=== PATIENT | male | born 1985 | race Caucasian/White ===

== ENCOUNTER 2023-11-02 21:14 | Emergency (ER) | payer BC ==
[2023-11-02 22:28] LABS: Basophils # (A) 0.1 k/uL (0-0.2); Basophils % (A) 1 %; Eosinophils # (A) 0.2 k/uL (0-0.7); Eosinophils % (A) 4 %; HCT 45.4 % (39.0-53.0); HGB 15.2 gm/dL (13.0-17.5); Lymphocytes # (A) 1.2 k/uL (1.0-4.8); Lymphocytes % (A) 23 %; MCH 34.4 pg (25.0-35.0); MCHC 33.5 g/dL (31.0-37.0); MCV 102.7 fL (80.0-100.0); Macrocytosis Slight; Mean Platelet Volume 7.8; Monocytes # (A) 0.3 k/uL (0-1.0); Monocytes % (A) 6 %; Neutrophils # (A) 3.3 k/uL (1.3-7.7); Neutrophils % (A) 64 %; Platelet Count 217 k/uL (150-450); RBC 4.42 m/uL (4.30-5.90); RDW 13.4 % (11.5-15.5); WBC 5.2 k/uL (3.8-10.6)
[2023-11-02 22:40] LABS: ALT 59 U/L (4-49); AST 127 U/L (17-59); African American GFR (CKD) >90 (>60 ml/min/1.73 sqM); Albumin 5.1 g/dL (3.5-5.0); Alkaline Phosphatase 62 U/L (38-126); Anion Gap 11 mmol/L; Blood Urea Nitrogen 9 mg/dL (9-20); Calcium 9.2 mg/dL (8.4-10.2); Carbon Dioxide 30 mmol/L (22-30); Chloride 101 mmol/L (98-107); Glucose 102 mg/dL (74-99); Non-African American GFR(CKD) >90 (>60 ml/min/1.73 sqM); Potassium 4.1 mmol/L (3.5-5.1); Sodium 142 mmol/L (137-145); Total Bilirubin 0.5 mg/dL (0.2-1.3); Total Protein 7.9 g/dL (6.3-8.2)
[2023-11-02 22:56] VITALS: RESP 16; TEMP 97.9
--- NOTE | 2023-11-02 23:57 | ED ---
General Adult HPI - General Chief complaint: Extremity Injury, Lower Stated complaint: Right knee swelling Time Seen by Provider: 11/02/23 23:49 Source: patient, RN notes reviewed Mode of arrival: ambulatory Limitations: no limitations - History of Present Illness Initial comments: 38-year-old male presented to the ED with complaints of right leg pain. Patient reports approximately week and a half ago dislocated his right knee which she has recurrent history of. Was seen at an outside facility for this. However since then reported continuing pain over his right knee and had drainage performed by Dr. Valentine 3 days ago. States the following day started to notice pain/swelling of his entire right leg with some discoloration of it as well. Patient is a non-smoker. Does note that he flew in from [place] 5 days ago. Denies fever or chills. No chest pain or shortness of breath. No other complaints at this time. - Related Data Allergies Allergy/AdvReac Type Severity Reaction Status Date / Time No Known Allergies Allergy Verified 11/02/23 22:05 Review of Systems ROS Statement: Those systems with pertinent positive or pertinent negative responses have been documented in the HPI. ROS Other: All systems not noted in ROS Statement are negative. Past Medical History Past Medical History: Hypertension Additional Past Medical History / Comment(s): high blood pressure since cov2021 Additional Past Surgical History / Comment(s): tubes in ears, two reconstructive jaw surgeries Smoking Status: Never smoker Past Alcohol Use History: Occasional Past Drug Use History: None Reported General Exam - General Exam Comments Initial Comments: Visual Physical Exam Vital signs reviewed General: Well-appearing, nontoxic, no acute distress. Head: Normocephalic, atraumatic Eyes: PERRLA, EOMI ENT: Airway patent Chest: Nonlabored breathing Skin: No visual rash, normal skin tone Neuro: Alert and oriented 3 Musculoskeletal: No gross abnormalities Limitations: no limitations General appearance: alert, in no apparent distress Eye exam: Present: normal appearance Neck exam: Present: normal inspection Respiratory exam: Present: normal lung sounds bilaterally Cardiovascular Exam: Present: regular rate GI/Abdominal exam: Present: soft, normal bowel sounds. Absent: distended, tenderness, guarding, rebound, rigid Extremities exam: Present: full ROM, other (Ecchymosis noted on the right upper medial thigh with diffuse swelling. DP/PT pulses intact. Ambulates without difficulty. No findings concerning for compartment syndrome. No significant warmth or erythema.) Neurological exam: Present: alert, oriented X3 Skin exam: Present: warm, dry Course Vital Signs 11/02/23 21:57 Temperature 97.9 F Pulse Rate 101 H Respiratory 16 Rate Blood Pressure 135/92 O2 Sat by Pulse 97 Oximetry Medical Decision Making - Medical Decision Making Quicknote portion performed. Signed Everton Oglesby PA-C Was pt. sent in by a medical professional or institution (, KIKI, SECURITY CLERK, urgent care, hospital, or alf...) When possible be specific @ -No Did you speak to anyone other than the patient for history (EMS, parent, family, police, friend...)? What history was obtained from this source @ -No Did you review nursing and triage notes (agree or disagree)? Why? @ -I reviewed and agree with nursing and triage notes Were old charts reviewed (outside hosp., previous admission, EMS record, old EKG, old radiological studies, urgent care reports/EKG's, alf records)? Report findings @ -No old charts were reviewed Differential Diagnosis (chest pain, altered mental status, abdominal pain women, abdominal pain men, vaginal bleeding, weakness, fever, dyspnea, syncope, headache, dizziness, GI bleed, back pain, seizure, CVA, palpatations, mental health, musculoskeletal)? @ -Differential Musculoskeletal Muscular strain, contusion, ligament sprain, fracture, arthritis, septic arthritis, bursitis, cellulitis, muscle spasm, nerve compression, DVT, arterial occlusion, herpes zoster, electrolyte abnormality, tumor.... This is not meant to be in all inclusive list EKG interpreted by me (3pts min.). @ -None X-rays interpreted by me (1pt min.). @ -X-ray of the knee interpreted me which revealed no evidence of acute finding. CT interpreted by me (1pt min.). @ -None done U/S interpreted by me (1pt. min.). @ -Ultrasound to primary which revealed no evidence of DVT or other acute finding. What testing was considered but not performed or refused? (CT, X-rays, U/S, labs)? Why? @ -None What meds were considered but not given or refused? Why? @ -None Did you discuss the management of the patient with other professionals (professionals i.e. , PA, SECURITY CLERK, lab, RT, psych nurse, social services technician, clinical education specialist, teacher, police or patrol park officer, comp field case manager)? Give summary @ -No Was smoking cessation discussed for >3mins.? @ -No Was critical care preformed (if so, how long)? @ -No Were there social determinants of health that impacted care today? How? (Homelessness, low income, unemployed, alcoholism, drug addiction, transportation, low edu. Level, literacy, decrease access to med. care, intermediate, rehab)? @ -No Was there de-escalation of care discussed even if they declined (Discuss DNR or withdrawal of care, Hospice)? DNR status @ -No What co-morbidities impacted this encounter? (DM, HTN, Smoking, COPD, CAD, Cancer, CVA, ARF, Chemo, Hep., AIDS, mental health diagnosis, sleep apnea, morbid obesity)? @ -None Was patient admitted / discharged? Hospital course, mention meds given and route, prescriptions, significant lab abnormalities, going to OR and other pertinent info. @ -Discharge 38-year-old male presenting to the ED with pain of his right leg following right knee tap a few days ago. On examination, diffuse ecchymosis of the right leg especially of the right upper medial thigh. DP/PT pulses intact. Full active range of motion. Ambulates without difficulty. Symptoms likely secondary to recent trauma. No findings concerning for compartment syndrome. No findings concerning for infectious process. Laboratory studies reviewed. CBC shows no white count. Chemistry panel does show some transaminitis however no concerning findings. Did offer patient antibiotics for possible infectious process however patient declined. Discharged home in stable condition with instructions to closely follow-up with his PCP. Discussed return precautions with patient who verbalized agreement. Undiagnosed new problem with uncertain prognosis? @ -No Drug Therapy requiring intensive monitoring for toxicity (Heparin, Nitro, Insulin, Cardizem)? @ -No Were any procedures done? @ -No Diagnosis/symptom? @ -Right leg pain Acute, or Chronic, or Acute on Chronic? @ -Acute Uncomplicated (without systemic symptoms) or Complicated (systemic symptoms)? @ -Uncomplicated Side effects of treatment? @ -No Exacerbation, Progression, or Severe Exacerbation? @ -No Poses a threat to life or bodily function? How? (Chest pain, USA, RI, pneumonia, PE, COPD, DKA, ARF, appy, cholecystitis, CVA, Diverticulitis, Homicidal, Suicidal, threat to staff... and all critical care pts) @ -No - Lab Data Result diagrams: 11/02/23 22:18 11/02/23 22:18 Lab Results 11/02/23 11/02/23 Range/Units 22:18 22:18 WBC 5.2 (3.8-10.6) k/uL RBC 4.42 (4.30-5.90) m/uL Hgb 15.2 (13.0-17.5) gm/dL Hct 45.4 (39.0-53.0) % MCV 102.7 H (80.0-100.0) fL MCH 34.4 (25.0-35.0) pg MCHC 33.5 (31.0-37.0) g/dL RDW 13.4 (11.5-15.5) % Plt Count 217 (150-450) k/uL MPV 7.8 Neutrophils % 64 % Lymphocytes % 23 % Monocytes % 6 % Eosinophils % 4 % Basophils % 1 % Neutrophils # 3.3 (1.3-7.7) k/uL Lymphocytes # 1.2 (1.0-4.8) k/uL Monocytes # 0.3 (0-1.0) k/uL Eosinophils # 0.2 (0-0.7) k/uL Basophils # 0.1 (0-0.2) k/uL Macrocytosis Slight Sodium 142 (137-145) mmol/L Potassium 4.1 (3.5-5.1) mmol/L Chloride 101 (98-107) mmol/L Carbon Dioxide 30 (22-30) mmol/L Anion Gap 11 mmol/L BUN 9 (9-20) mg/dL Creatinine 0.90 (0.66-1.25) mg/dL Est GFR (CKD-EPI)AfAm >90 (>60 ml/min/1.73 sqM) Est GFR (CKD-EPI)NonAf >90 (>60 ml/min/1.73 sqM) Glucose 102 H (74-99) mg/dL Calcium 9.2 (8.4-10.2) mg/dL Total Bilirubin 0.5 (0.2-1.3) mg/dL AST 127 H (17-59) U/L ALT 59 H (4-49) U/L Alkaline Phosphatase 62 (38-126) U/L Total Protein 7.9 (6.3-8.2) g/dL Albumin 5.1 H (3.5-5.0) g/dL Disposition Clinical Impression: Right leg pain Disposition: HOME SELF-CARE Condition: Good Additional Instructions: Please return to the Emergency Department if symptoms worsen or any other concerns. Please follow-up with your PCP. Use raof-bto-fsslqik medications as needed for pain. Is patient prescribed a controlled substance at d/c from ED?: No Referrals: None,Stated [Primary Care Provider] - 1-2 days Time of Disposition: 03:28
--- NOTE | 2023-11-03 01:10 | US ---
EXAM: US Duplex Right Lower Extremity Veins CLINICAL HISTORY: ITS.REASON US Reason: swollen knee TECHNIQUE: Real-time duplex ultrasound scan of the right lower extremity veins integrating B-mode two-dimensional vascular structure, Doppler spectral analysis, color flow Doppler imaging and compression. COMPARISON: No relevant prior studies available. FINDINGS: Deep veins: No DVT in the visualized common femoral, femoral, proximal deep femoral or popliteal veins. The veins demonstrate normal color flow, are normally compressible, with normal phasic flow and/or augmentation response. Superficial veins: No thrombus in the visualized great saphenous vein. Soft tissues: No popliteal cyst. IMPRESSION: No DVT.
--- NOTE | 2023-11-03 01:11 | XR ---
EXAM: XR Right Knee, 3 Views CLINICAL HISTORY: ITS.REASON XR Reason: swelling TECHNIQUE: Three views of the right knee. COMPARISON: No relevant prior studies available. FINDINGS: Bones/joints: No acute fracture. No dislocation. Soft tissues: There is a tiny calcification adjacent to the medial femoral condyle. IMPRESSION: No acute osseous abnormalities. Correlate with Ike-Stieda lesion related to prior medial collateral ligament injury.
[2023-11-03 03:41] VITALS: BP 150/98; PULSE 90
== END 2023-11-03 03:37 | disposition home or self-care (01) ==
LOC: EC 21:14
DX: M79.604 Pain in right leg (principal); Z86.16 Personal history of COVID-19
CPT/HCPCS: 36415; 80053; 85025; 99284

== ENCOUNTER 2024-01-28 21:42 | Inpatient (IN) | payer BC ==
[~2024-01-28 21:42] MED LIST: LIDOCAINE 1% INJ 10MG/ML (20 ML MDV) ONE; LORazepam 2 MG/ML INJ ONE; MAGNESIUM SULFATE-D5W PMX 100 ML IVPB ONE; TOPICAL SKIN ADHESIVE 1 EACH AMP TOPICAL ONE; levETIRAcetam IV 500 MG/5 ML VIAL ONE
[2024-01-29] MEDS ORDERED: TOPICAL SKIN ADHESIVE 1 EACH AMP TOPICAL ONE (09:23)
[2024-01-29] MEDS ORDERED: levETIRAcetam 500 MG TAB ONE ×2 (09:31→20:23)
[2024-01-29] MEDS ORDERED: THIAMINE 100 MG TAB ONE (09:31)
[2024-01-29] MEDS ORDERED: FOLIC ACID 1 MG TAB ONE (09:31)
[2024-01-29] MEDS ORDERED: MULTIVITAMINS, THERA 1 EACH TAB ONE (09:31)
[2024-01-29] MEDS ORDERED: LORazepam 2 MG/ML INJ ONE ×4 (09:41→20:23)
[2024-01-29] MEDS ORDERED: POTASSIUM CHLORIDE ER 20 MEQ TAB.ER PO ONE (14:15)
[2024-01-29] MEDS ORDERED: MAGNESIUM SULFATE-D5W PMX 100 ML IVPB ONE ×2 (14:15→17:19)
[2024-01-29] MEDS ORDERED: DIPH,PERTUS(ACELL)TETVAC-LF 0.5 ML VIAL IM ONE (23:59)
[2024-01-30] MEDS ORDERED: LORazepam 2 MG/ML INJ ONE ×5 (01:15→20:22)
[2024-01-30] MEDS ORDERED: MULTIVITAMINS, THERA 1 EACH TAB ONE (09:06)
[2024-01-30] MEDS ORDERED: levETIRAcetam 500 MG TAB ONE ×2 (09:06→20:21)
[2024-01-30] MEDS ORDERED: THIAMINE 100 MG TAB ONE (09:07)
[2024-01-30] MEDS ORDERED: FOLIC ACID 1 MG TAB ONE (09:07)
[2024-01-30] MEDS ORDERED: SODIUM CHLORIDE 0.9% 1,000 ML BAG ONE (23:59)
[2024-01-31] MEDS ORDERED: LORazepam 2 MG/ML INJ ONE ×2 (06:59→13:45)
[2024-01-31] MEDS ORDERED: MULTIVITAMINS, THERA 1 EACH TAB ONE (08:16)
[2024-01-31] MEDS ORDERED: FOLIC ACID 1 MG TAB ONE (08:17)
[2024-01-31] MEDS ORDERED: THIAMINE 100 MG TAB ONE (08:17)
[2024-01-31] MEDS ORDERED: levETIRAcetam 500 MG TAB ONE ×2 (08:17→21:19)
[2024-01-31] MEDS ORDERED: MAGNESIUM SULFATE-D5W PMX 100 ML IVPB ONE ×2 (12:16→13:39)
[2024-01-31] MEDS ORDERED: NALOXONE 0.4 MG/ML 1 ML VIAL IV PRN (19:47)
[2024-01-31] MEDS ORDERED: ACETAMINOPHEN TAB 325 MG TAB PO PRN (23:43)
[2024-01-31] MEDS ORDERED: ONDANSETRON 4 MG/2 ML VIAL IVP PRN (23:46)
[2024-01-31] MEDS ORDERED: LORazepam 2 MG/ML INJ IV PRN ×4 (23:47→23:49)
[2024-02-01] MEDS: SODIUM CHLORIDE 0.9% 1,000 ML IV SCH (03:14)
[2024-02-01 03:41] VITALS: RESP 17
[2024-02-01 04:10] LABS: Basophils % (A) 1 %; Eosinophils # (A) 0.2 k/uL (0-0.7); Eosinophils % (A) 6 %; HCT 37.8 % (39.0-53.0); HGB 12.8 gm/dL (13.0-17.5); Lymphocytes # (A) 0.9 k/uL (1.0-4.8); Lymphocytes % (A) 21 %; MCHC 33.8 g/dL (31.0-37.0); MCV 103.7 fL (80.0-100.0); Macrocytosis Slight; Mean Platelet Volume 7.7; Monocytes # (A) 0.6 k/uL (0-1.0); Monocytes % (A) 13 %; Neutrophils # (A) 2.4 k/uL (1.3-7.7); Neutrophils % (A) 57 %; Platelet Count 171 k/uL (150-450); RBC 3.65 m/uL (4.30-5.90); RDW 13.3 % (11.5-15.5); WBC 4.3 k/uL (3.8-10.6)
[2024-02-01 04:44] LABS: ALT 89 U/L (4-49); AST 108 U/L (17-59); African American GFR (CKD) >90 (>60 ml/min/1.73 sqM); Albumin 4.4 g/dL (3.5-5.0); Albumin/Globulin Ratio 1.9; Alkaline Phosphatase 50 U/L (38-126); Anion Gap 6 mmol/L; Blood Urea Nitrogen 9 mg/dL (9-20); Carbon Dioxide 27 mmol/L (22-30); Chloride 101 mmol/L (98-107); Globulin 2.3 g/dL; Glucose 90 mg/dL (74-99); Magnesium 1.7 mg/dL (1.6-2.3); Non-African American GFR(CKD) >90 (>60 ml/min/1.73 sqM); Sodium 134 mmol/L (137-145); Total Bilirubin 1.1 mg/dL (0.2-1.3); Total Protein 6.7 g/dL (6.3-8.2)
[2024-02-01 07:41] VITALS: BP 152/104; PULSE 68; TEMP 98
[2024-02-01] MEDS: MULTIVITAMINS, THERA 1 EACH TAB PO SCH (08:36)
[2024-02-01] MEDS: FOLIC ACID 1 MG TAB PO SCH (08:36)
[2024-02-01] MEDS: THIAMINE 100 MG TAB PO SCH (08:36)
[2024-02-01] MEDS: levETIRAcetam 500 MG TAB PO SCH (08:36)
[2024-02-01] MEDS: NEOMYCIN-BACITRACIN-POLY OINT 1 APPLIC/EACH PACKET TOPICAL SCH (08:37)
--- NOTE | 2024-02-01 10:17 | P.DS ---
Providers Date of admission: 01/28/24 21:42 Expected date of discharge: 02/01/24 Attending physician: Brian Perez MD Primary care physician: Stated None Hospital Course: Discharge Diagnosis: Alcohol withdraw Recurrent seizures, witnessed prior to arrival by family/EMS. Suspect alcohol withdrawal seizures Longstanding history of daily alcohol abuse Transaminitis, secondary to alcohol abuse. Hypomagnesemia Facial trauma, due to fall from seizure Hospital Course: Patient is a very pleasant 38-year-old male with a past medical history of daily alcohol abuse. He presented to the emergency department on 01/28/2024 via EMS after reported fall with seizure activity witnessed by his mother followed by recurrent episode of seizure witnessed by EMS while en route to our facility. Patient underwent evaluation in our emergency department. CT head and cervical spine was negative for acute process. EKG revealed sinus tachycardia at [address] face was negative for acute fracture showing mild soft tissue swelling. Labs revealed transaminitis and hypomagnesemia. Lactate was elevated initially at 11.3 consistent with recurrent seizure activity. Patient was treated with IV benzodiazepines with Ativan and was admitted under our services with consultation to neurology. Patient was placed on CIWA protocol and treated for alcohol withdrawal. He had no further episodes of seizure activity since arrival to our facility. He was evaluated by neurologist and started on Keppra 500 mg twice daily. We were unable to do EEG during this admission due to downtime, neurologist recommending patient have completed outpatient and providing patient with a prescription to have completed. MRI brain was completed during this hospitalization and reports stated to 1 mm foci of increased signal adjacent to the caudate nucleus and right frontal lobe. Patient is symptom triggered medications needs declined for symptoms of withdraw. Neurology clearing patient from neurological perspective for discharg e and medically patient is stable for discharge at this time. Patient strongly advised against any and all alcohol use and from refraining from situations/events where there will be excessive alcohol use. Patient educated on [place] state law stating no driving until seizure-free for 6 months. Patient to follow-up outpatient with PCP and neurologist. Patient discharged home on Keppra 500 mg twice daily. Patient seen and examined at bedside. Vital signs reviewed and stable. General: Nontoxic, no distress and appears stated age. Derm: Skin warm and dry, normal coloration for ethnicity. Head: Atraumatic, normocephalic and symmetric. Mild bruising left lateral face and cheek extending into left periorbital region. Swelling significantly improved. Patient has been/laceration to bridge of nose, scabbed over at this time. Eyes: EOM's intact, no lid lag, and anicteric sclera Mouth: no lip lesions, mucus membranes moist Cardiovascular: regular rate and rhythm with normal S1S2, no murmur, positive posterior tibial pulses bilaterally, and cap refill < 2 seconds. Lungs: Respirations even, regular, and unlabored on room air. Lungs CTA bilaterally, no rhonchi, no rales, no wheezing, and no accessory muscle usage. Abdominal: soft, nontender to palpation, no guarding, no appreciable organomegaly Ext: ROM intact. No gross muscle atrophy, no edema, no contractures Neuro: Speech clear, face symmetrical and CN II-XII grossly intact with no noted focal neuro deficits Psych: Alert and oriented to person, place, time, and situation. Appropriate and pleasant affect. A total of 36 minutes of time were spent preparing this complex discharge summary. Pt was discharged on 02/01/2024 at 10:15 AM. Patient was seen independently by Nurse Practitioner. This document was prepared using [employer] dictation software. Please allow for errors in latex dipper while rare they do occur. Mehul Canela NP rendered care for this patient independently, reviewed the findin gs and plan as documented in the note above. I did not physically speak with or examine the patient on this date. Patient Condition at Discharge: Stable Plan - Discharge Summary New Discharge Prescriptions: New Folic Acid 1 mg PO DAILY@1200 30 Days #30 tab Multivitamins, Thera [Multivitamin (formulary)] 1 each PO DAILY 30 Days #30 tab levETIRAcetam [Keppra] 500 mg PO BID 90 Days #180 tab Eklwptse-Efjlsjuigz-Oleu Oint [Triple Antibiotic Ointment] 1 applic TOPICAL BID 5 Days #10 packet Thiamine [Vitamin B-1] 100 mg PO DAILY@1200 30 Days #30 tab Discharge Medication List Folic Acid 1 mg PO DAILY@1200 30 Days #30 tab 02/01/24 [Rx] Multivitamins, Thera [Multivitamin (formulary)] 1 each PO DAILY 30 Days #30 tab 02/01/24 [Rx] Scvkammp-Ngimkgzjvi-Iyfs Oint [Triple Antibiotic Ointment] 1 applic TOPICAL BID 5 Days #10 packet 02/01/24 [Rx] Thiamine [Vitamin B-1] 100 mg PO DAILY@1200 30 Days #30 tab 02/01/24 [Rx] levETIRAcetam [Keppra] 500 mg PO BID 90 Days #180 tab 02/01/24 [Rx] Follow up Appointment(s)/Referral(s): Florentino Owens MD [REFERRING] - 1 Week Heber Zayas MD [REFERRING] - 1 Week (Please call first thing tomorrow morning to schedule first available appointment for follow up visit and to establish PCP care in this area, as it is important to follow up on your liver function. ) Patient Instructions/Handouts: Abuse of Alcohol (DC), Alcohol Withdrawal (DC) Activity/Diet/Wound Care/Special Instructions: Activity: As tolerated. Diet: Regular diet. Special Instructions: Take all of your medications as directed and remember to keep all of your doctor's appointments and follow-up as needed. Strongly recommend continuing to avoid any and all alcohol use or situations where there will be excessive alcohol use. I truly wish you the best of luck on your journey towards sobriety!!! As we discussed it will be difficult, but the end result and your health will be worth it. [place] state law states no driving until seizure free for 6 months. Thank you for allowing us to participate in your care, it was truly a pleasure having you for our patient!!! . Discharge/Stand Alone Forms: AA Meetings [facility], AA Meetings [address] - [facility], Inp Substance Abuse Facilities, Outpatient Counseling, Outpatient Therapy List Discharge Disposition: HOME SELF-CARE
[2024-02-01] MEDS ORDERED: NEOMYCIN-BACITRACIN-POLY OINT 14 GM TUBE TOPICAL ONE (12:00)
--- NOTE | 2024-02-01 13:50 | P.PN ---
Subjective Progress Note Date: 02/01/24 Patient was seen for a follow-up. Patient is doing well. Wants to go home. He is fully dressed. Patient's mother was also present. No further seizures noted. Objective - Vital Signs Vital signs: Vital Signs Temp 98.0 F 02/01/24 07:00 Pulse 68 02/01/24 08:37 Resp 17 02/01/24 08:37 BP 152/104 02/01/24 07:00 Pulse Ox 99 02/01/24 07:00 FiO2 Intake & Output 01/31/24 02/01/24 02/01/24 18:59 06:59 18:59 Weight 77.111 kg - Exam Mental status, speech and language functions are normal. Gait is normal. - Labs CBC & Chem 7: 02/01/24 02:38 02/01/24 03:38 Labs: Abnormal Lab Results - Last 24 Hours (Table) 02/01/24 02/01/24 Range/Units 02:38 03:38 RBC 3.65 L (4.30-5.90) m/uL Hgb 12.8 L (13.0-17.5) gm/dL Hct 37.8 L (39.0-53.0) % MCV 103.7 H (80.0-100.0) fL Lymphocytes # 0.9 L (1.0-4.8) k/uL Sodium 134 L (137-145) mmol/L AST 108 H (17-59) U/L ALT 89 H (4-49) U/L Assessment and Plan Assessment: * New onset seizure, likely due to alcoholism/alcohol withdrawal. * Chronic alcoholism with macrocytosis * Facial trauma due to fall * Elevated LFTs due to alcohol, improving Plan: * Patient is status post detox. He is doing well. * Continue thiamine, folate, multivitamins. * MRI of the brain revealed there are 2 nonspecific 1 mm foci of increased signal adjacent to the caudate nucleus right frontal lobe on the inversion recovery data set. No acute edema present. No acute stroke. This is likely nonspecific finding. I am not able to review MRI images because of the system shutdown. * Patient to undergo EEG as outpatient. * Patient to be continued on Keppra 5 mg twice daily for 4 to 6 weeks. If the EEG is normal, then may taper off Keppra. * Patient to follow-up with neurologist outpatient. * Neurologically clear for discharge
--- NOTE | 2024-02-17 16:26 | MR ---
Patient: Rian Hurtado Ordering Physician: Unknown, Unknown ID: [id number] Phone, Pager: Phone: N/ A Pager: N/A : 1985 Age/Gender: 38Y, M Primary Location: N/A Procedure: MRI BRAIN WO CONTRAST Study Date: 01/29/2024 2:24:44 PM EXAMINATION TYPE: MR brain wo con DATE OF EXAM: 01/29/2024 4:26 PM COMPARISON: NONE HISTORY: Seizure Multiplanar and multispin-echo imaging of the brain was performed . The ventricles, basal cisterns and sulci overlying the cerebral convexities are within normal limits. There is no evidence for midline shift or mass effect. Acute intracranial hemorrhage or extra-axial collection is not evident. There are two nonspecific 1 mm foci of increased signal adjacent to the caudate nucleus right frontal lobe on the inversion recovery data set. No acute edema is identified. The paranasal sinuses and mastoid air cells are well-aerated. IMPRESSION: There are two nonspecific 1 mm foci of increased signal adjacent to the caudate nucleus right frontal lobe on the inversion recovery data set. No acute edema present.
--- NOTE | 2024-02-23 11:32 | XR ---
Patient: Rian Hurtado Ordering Physician: Unknown, Unknown ID: [id number] Phone, Pager: Phone: N/A P ager: N/A : 1985 Age/Gender: 38Y, M Primary Location: N/A Procedure: ELBOW R Study Date: 01/27 12:45:49 PM EXAMINATION TYPE: Elbow X-Ray Complete Right DATE OF EXAM: 01/28/2024 CLINICAL HISTORY: pain TECHNIQUE: Frontal, lateral and oblique images of the right elbow are obtained. COMPARISON: None. FINDINGS: There is no acute fracture/dislocation evident of the elbow. No abnormal fat pad signs ar e seen. The overlying soft tissue appears unremarkable. IMPRESSION: There is no acute fracture or dislocation of the elbow. ICD 10 NO FRACTURE, INITIAL EVALUATION
== END 2024-02-01 13:59 | disposition home or self-care (01) | DRG 897 ==
LOC: DISRECOVER 21:42 → 4SSUR 01-31 18:44
PROVIDERS: ADMIT Internal Medicine; ATTEND Internal Medicine
PROC: 0HQ1XZZ Repair Face Skin, External Approach (ICD-10-PCS; principal; 2024-01-28)
DX: F10.239 Alcohol dependence with withdrawal, unspecified (principal); G40.802 Other epilepsy, not intractable, without status epilepticus; F10.288 Alcohol dependence with other alcohol-induced disorder; D69.59 Other secondary thrombocytopenia; E83.42 Hypomagnesemia; S01.21XA Laceration without foreign body of nose, initial encounter; D75.89 Other specified diseases of blood and blood-forming organs; E87.6 Hypokalemia; R25.1 Tremor, unspecified; R74.01 Elevation of levels of liver transaminase levels; W19.XXXA Unspecified fall, initial encounter; Y92.002 Bathroom of unspecified non-institutional (private) residence as the place of occurrence of the external cause
CPT/HCPCS: 70450; 70486; 70551; 72125; 80053; 83735; 85025; 86850; 86900; 86901; 90715; 93005; 99285

== ENCOUNTER → 2024-03-08 | Outpatient (CLI) | payer BC ==
--- NOTE | 2024-03-15 02:52 | EEG ---
ELECTROENCEPHALOGRAM REPORT PREAMBLE: This is a 39-year-old male, who was recently admitted to the hospital in January 2024 when the electronic medical system was down. EEG could not be completed at that time. The patient in December 2023 had COVID. Afterwards, he developed difficulty in breathing and some anxiety. On one night, he had multiple seizures. The patient was placed on Keppra. EEG FINDINGS: This is a 21-channel digital EEG recorded with video component, utilizing 10/20 international system with referential and bipolar montages. This is a prolonged study performed for 1 hour. Recording start time 8:35 a.m. on 03/08/2024, and recording end time is 9:41 a.m. on 03/08/2024. The recording starts and continues with presence of a well-developed, well-regulated moderate amplitude activity in 9 Hz alpha. Background is posterior dominant and reactive to eye opening and closing. Photic driving response was not seen. Hyperventilation was not performed. Drowsiness was seen at the end of the study, but deeper stages of sleep were not seen. No focal or generalized epileptiform activity was seen. EKG channel showed no obvious arrhythmia. IMPRESSION: This is a normal awake and drowsy EEG. No focal, lateralized, or epileptiform activity was seen. MMODL / IJN: [id number] /
== END ==
LOC: NEUROMAIN 08:02
PROVIDERS: ATTEND Psychiatry & Neurology Neurology
CPT/HCPCS: 95813